=== PATIENT | female | born 1935 | race Caucasian/White ===

== ENCOUNTER 2018-04-21 03:03 | Inpatient (IN) ==
[2018-04-30 08:20] VITALS: BP 148/71
== END 2018-04-30 13:10 | DRG 637 ==
LOC: EDUNIT# → EDBD → N.ED 03:03 → SUATTDRO 04:09 → N.EDINP 04:09 → N.ICU 05:55 → N.2E 04-24 13:55
PROVIDERS: ADMIT Family Medicine; ATTEND Internal Medicine
PROC: EGDWPEG (ICD-10-PCS; 2018-04-28 12:35)